=== PATIENT | male | born 1990 | race African-American/Black ===

== ENCOUNTER 2016-09-07 09:28 | Emergency (ER) | payer BC ==
[2016-09-07 09:43] VITALS: BP 144/79
--- NOTE | 2016-09-07 09:59 | EDM.PDOC ---
ED HPI GENERAL MEDICAL PROBLEM - General Chief Complaint: ENT Problem Stated Complaint: RT SIDE OF FACE HURTS Time Seen by Provider: 09/07/16 09:49 - History of Present Illness INITIAL COMMENTS - FREE TEXT/NARRATIVE: HISTORY AND PHYSICAL: History of present illness: Patient is a healthy 25-year-old male who has no stated medical history presents with a week of right knee pain that has been on and off and returned again today. Initially he says he felt like something was in his ear so he used hydrogen peroxide and all oil because he thought there might be a bug care. When he did the irritation nothing came out and he did not get improvement. He' s had no drainage from the ear since that time. Patient now says that the ear pain is progressing to pain on the right side of his face he has no dental pain sore throat fevers chills runny nose or sinus congestion. Review of systems: As per history of present illness and below otherwise all systems reviewed and negative. Past medical history: As per history of present illness and as reviewed below otherwise noncontributory. Surgical history: As per history of present illness and as reviewed below otherwise noncontributory. Social history: No reported history of drug or alcohol abuse. Family history: As per history of present illness and as reviewed below otherwise noncontributory. Physical exam: General: Well-developed well-nourished male who is nontoxic and has no visible facial swelling. Placenta been noted by me HEENT: Atraumatic, normocephalic, pupils reactive, negative for conjunctival pallor or scleral icterus, mucous membranes moist, throat clear, neck supple, nontender, trachea midline. There is anterior cervical adenopathy but no nuchal rigidity. TM on the left is completely normal with a nice light reflex and no external canal erythema or debris. The right ear has no external canal debris or inflammation but the TM is bulging and has a diminished right light reflex system with fluid. There is no mastoid tenderness or periAuricular adenopathy Lungs: Clear to auscultation, breath sounds equal bilaterally, chest nontender. Heart: S1S2, regular rhythm no overt murmurs Abdomen: Soft, nondistended, nontender. NABS Genitourinary: Deferred. Rectal: Deferred. Extremities: Atraumatic, negative for cords or calf pain. Neurovascular unremarkable. Neuro: Awake, alert, oriented. Cranial nerves II through XII unremarkable. Cerebellum unremarkable. Motor and sensory unremarkable throughout. Exam nonfocal. Diagnostics: Therapeutics: Impression: Right otitis media, facial pain Definitive disposition and diagnosis as appropriate pending reevaluation and review of above. Treatments PVC MONITOR: Reports: NSAIDS Other Treatments PVC MONITOR: ibuprofen @ 3am right face Pain Score (Numeric/FACES): 1 - Related Data Allergies Allergy/AdvReac Type Severity Reaction Status Date / Time strawberry Allergy Hives Verified 09/07/16 09:40 Home Meds: Home Meds . [No Known Home Meds] 09/07/16 [History] Past Medical History HEENT History: Reports: None Cardiovascular History: Reports: None Respiratory History: Reports: None Gastrointestinal History: Reports: None Genitourinary History: Reports: None Musculoskeletal History: Reports: None Neurological History: Reports: None Psychiatric History: Reports: None Hematologic History: Reports: None Oncologic (Cancer) History: Reports: None Dermatologic History: Reports: None - Infectious Disease History Infectious Disease History: Reports: None Social & Family History - Family History Family Medical History: Noncontributory - Tobacco Use Smoking Status *Q: Never Smoker - Caffeine Use Caffeine Use: Reports: Tea - Recreational Drug Use Recreational Drug Use: No ED ROS GENERAL - Review of Systems Review Of Systems: ROS reveals no pertinent complaints other than HPI. ED EXAM, GENERAL - Physical Exam Exam: See Below (See dictation) Course - Vital Signs Last Recorded V/S: Last Vital Signs Temp 36.1 C 09/07/16 09:40 Pulse 88 09/07/16 09:40 Resp 16 09/07/16 09:40 BP 144/79 H 09/07/16 09:40 Pulse Ox 98 09/07/16 09:40 Departure - Departure Time of Disposition: 09:58 Disposition: Home, Self-Care 01 Condition: good Clinical Impression: Right sided facial pain Otitis media Qualifiers: Otitis media type: unspecified Laterality: right Chronicity: unspecified Qualified Code(s): H66.91 - Otitis media, unspecified, right ear Forms: ED Department Discharge Additional Instructions: The following information is given to patients seen in the emergency department who are being discharged to home. This information is to outline your options for follow-up care. We provide all patients seen in our emergency department with a follow-up referral. The need for follow-up, as well as the timing and circumstances, are variable depending upon the specifics of your emergency department visit. If you don't have a primary care physician on staff, we will provide you with a referral. We always advise you to contact your personal physician following an emergency department visit to inform them of the circumstance of the visit and for follow-up with them and/or the need for any referrals to a consulting specialist. The emergency department will also refer you to a specialist when appropriate. This referral assures that you have the opportunity for followup care with a specialist. All of these measure are taken in an effort to provide you with optimal care, which includes your followup. Under all circumstances we always encourage you to contact your private physician who remains a resource for coordinating your care. When calling for followup care, please make the office aware that this follow-up is from your recent emergency room visit. If for any reason you are refused follow-up, please contact the [facility] emergency department at and ask to speak to the emergency department charge nurse. [facility] Primary care- Internal Medicine and Family [address] [id number] Please take [id number] Tylenol or ibuprofen for pain and take stronger pain medication only when you're home. Please take antibiotics until you are finished and please followup with primary care for reevaluation and further care next week. Return to ER as needed and as discussed
== END 2016-09-07 10:03 | disposition home or self-care (01) ==
LOC: MW.ED 09:28
DX: H66.91 Otitis media, unspecified, right ear (principal); R51 Headache
CPT/HCPCS: 99282; 99283

== ENCOUNTER 2016-09-10 15:23 | Emergency (ER) | payer BC ==
[2016-09-10] MEDS ORDERED: Benzocaine 20% Topical Spray UD MUCMEM ONE (16:10)
[2016-09-10] MEDS ORDERED: Lidocaine 2% Viscous Solution 15 ML Cup PO ONE (16:10)
[2016-09-10] MEDS ORDERED: Ketorolac 60 MG/2 ML SDV IM ONE (16:12)
--- NOTE | 2016-09-10 16:15 | EDM.PDOC ---
ED HPI GENERAL MEDICAL PROBLEM - General Chief Complaint: ENT Problem Stated Complaint: ABSCESS TOOTH Time Seen by Provider: 09/10/16 16:13 Source of Information: Reports: Patient History Limitations: Reports: No limitations - History of Present Illness INITIAL COMMENTS - FREE TEXT/NARRATIVE: History of present illness: [25-year-old male presenting with complaints of new onset loss of filling to right back molar approximately in the 30-32 region. Patient indicates that he is currently on antibiotics but has pain and some diminished capacity to open his mouth.] Review of systems: As per history of present illness and below otherwise all systems reviewed and negative. Past medical history: As per history of present illness and as reviewed below otherwise noncontributory. Surgical history: As per history of present illness and as reviewed below otherwise noncontributory. Social history: No reported history of drug or alcohol abuse. Family history: As per history of present illness and as reviewed below otherwise noncontributory. Physical exam: HEENT: Atraumatic, normocephalic, pupils reactive, negative for conjunctival pallor or scleral icterus, mucous membranes moist, throat clear, neck supple, nontender, trachea midline. Lungs: Clear to auscultation, breath sounds equal bilaterally, chest nontender. Heart: S1S2, regular, negative for clicks, rubs, or JVD. Abdomen: Soft, nondistended, nontender. Negative for masses or hepatosplenomegaly. Negative for costovertebral tenderness. Pelvis: Stable nontender. Genitourinary: Deferred. Rectal: Deferred. Extremities: Atraumatic, negative for cords or calf pain. Neurovascular unremarkable. Neuro: Awake, alert, oriented. Cranial nerves II through XII unremarkable. Cerebellum unremarkable. Motor and sensory unremarkable throughout. Exam nonfocal. Diagnostics: [] Therapeutics: [Toradol 60 mg IM, compatible] Impression: [Dental caries with loss of filling] Plan: [Followup with dentist for tooth repair] Definitive disposition and diagnosis as appropriate pending reevaluation and review of above. Right Tooth/Teeth Pain Score (Numeric/FACES): 5 - Related Data Allergies Allergy/AdvReac Type Severity Reaction Status Date / Time strawberry Allergy Hives Verified 09/10/16 15:37 Home Meds: Home Meds . [No Known Home Meds] 09/07/16 [History] Past Medical History HEENT History: Reports: None Cardiovascular History: Reports: None Respiratory History: Reports: None Gastrointestinal History: Reports: None Genitourinary History: Reports: None Musculoskeletal History: Reports: None Neurological History: Reports: None Psychiatric History: Reports: None Hematologic History: Reports: None Oncologic (Cancer) History: Reports: None Dermatologic History: Reports: None - Infectious Disease History Infectious Disease History: Reports: None Social & Family History - Family History Family Medical History: Noncontributory - Tobacco Use Smoking Status *Q: Never Smoker - Caffeine Use Caffeine Use: Reports: Tea - Recreational Drug Use Recreational Drug Use: No ED ROS GENERAL - Review of Systems Review Of Systems: See Below (See history of present illness) ED EXAM, GENERAL - Physical Exam Exam: See Below (See history of present illness) Course - Vital Signs Last Recorded V/S: Last Vital Signs Temp 36.9 C 09/10/16 15:35 Pulse 93 09/10/16 15:35 Resp 18 09/10/16 15:35 BP 141/83 H 09/10/16 15:35 Pulse Ox 99 09/10/16 15:35 Departure - Departure Time of Disposition: 16:16 Disposition: Home, Self-Care 01 Condition: good Clinical Impression: Dental caries Forms: ED Department Discharge Additional Instructions: The following information is given to patients seen in the emergency department who are being discharged to home. This information is to outline your options for follow-up care. We provide all patients seen in our emergency department with a follow-up referral. The need for follow-up, as well as the timing and circumstances, are variable depending upon the specifics of your emergency department visit. If you don't have a primary care physician on staff, we will provide you with a referral. We always advise you to contact your personal physician following an emergency department visit to inform them of the circumstance of the visit and for follow-up with them and/or the need for any referrals to a consulting specialist. The emergency department will also refer you to a specialist when appropriate. This referral assures that you have the opportunity for follow-up care with a specialist. All of these measure are taken in an effort to provide you with optimal care, which includes your follow-up. Under all circumstances we always encourage you to contact your private physician who remains a resource for coordinating your care. When calling for follow-up care, please make the office aware that this follow-up is from your recent emergency room visit. If for any reason you are refused follow-up, please contact the [facility] Emergency Department at and asked to speak to the emergency department charge nurse. Use dental balls to fill the area that the cavity is in that the filling use to reside Ibuprofen 800 mg every 8 hours for inflammation swelling and discomfort Continue with the antibiotics Re: prescribed Followup with dental as soon as possible Return to ED as needed as discussed
[2016-09-10 19:25] VITALS: BP 135/80
== END 2016-09-10 17:16 | disposition home or self-care (01) ==
LOC: MW.ED 15:23
DX: K02.9 Dental caries, unspecified (principal)
CPT/HCPCS: 96372; 99283; A9270; J1885